=== PATIENT | female | born 1935 | race Caucasian/White ===

== ENCOUNTER 2018-01-06 14:06 | Inpatient (IN) ==
[2018-01-06 14:52] LABS: Basophils % 0.3 % (0.0-0.8); Hematocrit 41.3 VOL% (35.7-47.0); Hemoglobin 14.1 GM/DL (12.0-16.0); Immature Granulocytes % 0.8 %; Immature Granulocytes Absolute 0.09 #; Lymphocytes # 0.5 10*3/uL (1.4-4.0); Lymphocytes % 4.6 % (21.3-54.2); Mean Corpuscular HGB Conc 34.1 GM/DL (32-36); Mean Corpuscular Hemoglobin 34 PG (27-34); Mean Corpuscular Volume 99.8 FL (87-102); Mean Platelet Volume 9.9 FL (9.6-12.0); Monocytes # 0.6 10*3/uL (0.11-0.8); Monocytes % 5.4 % (1.7-12.7); Neutrophils # 10.1 10*3/uL (1.4-7.4); Neutrophils % 88.9 % (38.7-73.9); Platelet Count 221 T/CUMM (130-400); Red Blood Count 4.14 MC/CUMM (3.8-5.5); Red Cell Distribution Width 13.5 % (9.3-17.3); White Blood Count 11.4 T/CUMM (4-12)
[2018-01-06 15:23] LABS: Band Neutrophils 4 % (0-10); Lymphocytes 5 % (20-55); Platelet Estimate Normal; Segmented Neutrophils 88 % (50-85); Total Cells Counted 100
[2018-01-06 15:48] LABS: Alanine Aminotransferase 37 U/L (13-56); Albumin 3.3 G/DL (3.4-5.0); Alkaline Phosphatase 80 U/L (45-117); Aspartate Amino Transferase 31 U/L (0-37); Blood Urea Nitrogen 19 MG/DL (7-18); Calcium 9.2 MG/DL (8.5-10.1); Glucose 128 MG/DL (74-106); Osmolality,Calculated 263.8 MOS/KG (273-304); Potassium 3.6 MMOL/L (3.5-5.1); Sodium 130 MMOL/L (136-145); Total Protein 7.4 G/DL (6.4-8.3)
[2018-01-06 15:51] LABS: Apearance,Urine Cloudy (Clear); Bilirubin,Urine Negative (Negative); Blood, Urine Small mg/dL (Negative); Glucose,Urine (UA) Negative (Negative); Ketones,Urine Negative (Negative); Nitrite,Urine Positive (Negative); Protein,Urine Negative; RBC,Urine 15 /HPF (0-4); Squamous Epithelial Cell,Urine Occasional /HPF (0-10); Urine Color Amber (Yellow); Urine Specific Gravity 1.014 (1.001-1.035); WBC,Urine 118 /HPF (0-6)
[2018-01-06] MEDS ORDERED: ACETAMINOPHEN 325 MG TABLET PO PRN (19:00)
[2018-01-06] MEDS ORDERED: ONDANSETRON 4 MG/2 ML VIAL IV PRN (19:00)
[2018-01-06 19:34] LABS: Risk Ratio 4.49; Thyroid Stimulating Hormone 0.738 uIU/ml (0.358-3.74)
[2018-01-06] MEDS: SODIUM CHLOR 0.9% KCL 40 MEQ 40 MEQ/1,000 ML BAG IV SCH (21:35)
[2018-01-06] MEDS: LEVOFLOXACIN 250 MG TABLET PO SCH (21:37)
[2018-01-06] MEDS: APIXABAN 5 MG TABLET PO SCH (21:37)
[2018-01-07 06:16] LABS: Calcium 8.5 MG/DL (8.5-10.1); Osmolality,Calculated 268.2 MOS/KG (273-304); Potassium 3.6 MMOL/L (3.5-5.1)
[2018-01-07] MEDS ORDERED: PANTOPRAZOLE 40 MG TABLET PO SCH (07:30)
[2018-01-07] MEDS: CETIRIZINE 10 MG TABLET PO SCH (08:31)
[2018-01-07] MEDS: CALCIUM (CARBONATE)/VITAMIN D 600 MG-400 UNIT TABLET PO SCH (08:31)
[2018-01-07] MEDS: DILTIAZEM CD 180 MG CAPSULE PO SCH (08:31)
[2018-01-07] MEDS: APIXABAN 5 MG TABLET PO SCH ×2 (08:32→20:22)
[2018-01-07] MEDS: SODIUM CHLOR 0.9% KCL 40 MEQ 40 MEQ/1,000 ML BAG IV SCH ×4 (10:21→12:09)
[2018-01-07] MEDS: SOTALOL 80 MG TABLET PO SCH ×2 (12:07→20:22)
[2018-01-07] MEDS: PANTOPRAZOLE 40 MG TABLET PO SCH (15:47)
[2018-01-07] MEDS ORDERED: ALBUTEROL/IPRATROPIUM 3 ML NEB RESP TX PRN (16:39)
[2018-01-07] MEDS: LEVOFLOXACIN 250 MG TABLET PO SCH (20:22)
[2018-01-08 06:17] LABS: Basophils # 0.1 10*3/uL (0.0-0.2); Basophils % 0.8 % (0.0-0.8); Eosinophils # 0.1 10*3/uL (0.0-0.87); Eosinophils % 1.1 % (0.00-10.9); Hematocrit 35.2 VOL% (35.7-47.0); Immature Granulocytes Absolute 0.06 #; Lymphocytes # 1.2 10*3/uL (1.4-4.0); Lymphocytes % 18.7 % (21.3-54.2); Mean Corpuscular HGB Conc 34.1 GM/DL (32-36); Mean Corpuscular Hemoglobin 34 PG (27-34); Mean Corpuscular Volume 100.9 FL (87-102); Mean Platelet Volume 9.9 FL (9.6-12.0); Monocytes # 1.2 10*3/uL (0.11-0.8); Monocytes % 19.6 % (1.7-12.7); Neutrophils # 3.7 10*3/uL (1.4-7.4); Neutrophils % 58.8 % (38.7-73.9); Platelet Count 234 T/CUMM (130-400); Red Blood Count 3.49 MC/CUMM (3.8-5.5); Red Cell Distribution Width 14.1 % (9.3-17.3); White Blood Count 6.3 T/CUMM (4-12)
[2018-01-08 06:41] LABS: Eosinophils 1 % (0-10); Lymphocytes 21 % (20-55); Platelet Estimate Adequate; Segmented Neutrophils 66 % (50-85); Total Cells Counted 100
[2018-01-08 06:42] LABS: Hypochromasia Slight; Ovalocytes Slight
[2018-01-08 06:43] LABS: Calcium 8.4 MG/DL (8.5-10.1); Osmolality,Calculated 271.1 MOS/KG (273-304); Potassium 4.2 MMOL/L (3.5-5.1)
[2018-01-08] MEDS ORDERED: FUROSEMIDE 40 MG/4 ML VIAL IV ONE ×2 (10:37→18:55)
[2018-01-08] MEDS: DILTIAZEM CD 180 MG CAPSULE PO SCH (10:55)
[2018-01-08] MEDS: SOTALOL 80 MG TABLET PO SCH ×2 (10:56→21:42)
[2018-01-08] MEDS: PANTOPRAZOLE 40 MG TABLET PO SCH ×2 (10:56→21:42)
[2018-01-08] MEDS: CETIRIZINE 10 MG TABLET PO SCH (10:57)
[2018-01-08] MEDS: APIXABAN 5 MG TABLET PO SCH ×2 (10:57→21:42)
[2018-01-08] MEDS: CALCIUM (CARBONATE)/VITAMIN D 600 MG-400 UNIT TABLET PO SCH (10:57)
[2018-01-08] MEDS: cefTRIAXone 1,000 MG in SYRINGE 1 EACH IV SCH (21:41)
[2018-01-09 05:16] LABS: Basophils % 0.6 % (0.0-0.8); Eosinophils # 0.1 10*3/uL (0.0-0.87); Hematocrit 34.1 VOL% (35.7-47.0); Hemoglobin 11.9 GM/DL (12.0-16.0); Immature Granulocytes % 0.9 %; Immature Granulocytes Absolute 0.06 #; Lymphocytes # 1.5 10*3/uL (1.4-4.0); Lymphocytes % 22.4 % (21.3-54.2); Mean Corpuscular HGB Conc 34.9 GM/DL (32-36); Mean Corpuscular Hemoglobin 34 PG (27-34); Mean Corpuscular Volume 98.3 FL (87-102); Mean Platelet Volume 10.3 FL (9.6-12.0); Monocytes # 1.2 10*3/uL (0.11-0.8); Monocytes % 17.2 % (1.7-12.7); Neutrophils # 3.9 10*3/uL (1.4-7.4); Neutrophils % 57.9 % (38.7-73.9); Platelet Count 257 T/CUMM (130-400); Red Blood Count 3.47 MC/CUMM (3.8-5.5); Red Cell Distribution Width 13.6 % (9.3-17.3); White Blood Count 6.8 T/CUMM (4-12)
[2018-01-09 05:51] LABS: Atypical Lymphocytes Few; Band Neutrophils 1 % (0-10); Hypochromasia Slight; Lymphocytes 21 % (20-55); Nucleated Red Blood Cells 1 (0-5); Segmented Neutrophils 59 % (50-85); Total Cells Counted 100
[2018-01-09 05:52] LABS: Microcytosis Slight
[2018-01-09 05:58] LABS: Calcium 8.8 MG/DL (8.5-10.1); Osmolality,Calculated 276.7 MOS/KG (273-304); Potassium 3.7 MMOL/L (3.5-5.1)
[2018-01-09] MEDS ORDERED: POTASSIUM CHLORIDE 20 MEQ TABLET PO SCH (09:00)
[2018-01-09] MEDS: CALCIUM (CARBONATE)/VITAMIN D 600 MG-400 UNIT TABLET PO SCH (11:12)
[2018-01-09] MEDS: DILTIAZEM CD 180 MG CAPSULE PO SCH (11:12)
[2018-01-09] MEDS: SOTALOL 80 MG TABLET PO SCH ×2 (11:12→20:34)
[2018-01-09] MEDS: CETIRIZINE 10 MG TABLET PO SCH (11:13)
[2018-01-09] MEDS: PANTOPRAZOLE 40 MG TABLET PO SCH ×2 (11:13→20:34)
[2018-01-09] MEDS: APIXABAN 5 MG TABLET PO SCH ×2 (11:13→20:35)
[2018-01-09] MEDS: FUROSEMIDE 40 MG/4 ML VIAL IV SCH (11:15)
[2018-01-09] MEDS: cefTRIAXone 1,000 MG in SYRINGE 1 EACH IV SCH (20:35)
[2018-01-10 05:36] LABS: Basophils # 0.1 10*3/uL (0.0-0.2); Basophils % 1.2 % (0.0-0.8); Eosinophils # 0.1 10*3/uL (0.0-0.87); Eosinophils % 2.3 % (0.00-10.9); Hematocrit 36.2 VOL% (35.7-47.0); Immature Granulocytes % 0.9 %; Immature Granulocytes Absolute 0.05 #; Lymphocytes # 1.8 10*3/uL (1.4-4.0); Lymphocytes % 31.1 % (21.3-54.2); Mean Corpuscular HGB Conc 33.1 GM/DL (32-36); Mean Corpuscular Hemoglobin 33 PG (27-34); Mean Corpuscular Volume 100.6 FL (87-102); Mean Platelet Volume 10.6 FL (9.6-12.0); Monocytes % 17.2 % (1.7-12.7); Neutrophils # 2.7 10*3/uL (1.4-7.4); Neutrophils % 47.3 % (38.7-73.9); Platelet Count 262 T/CUMM (130-400); Red Cell Distribution Width 13.3 % (9.3-17.3); White Blood Count 5.7 T/CUMM (4-12)
[2018-01-10 06:04] LABS: Calcium 8.5 MG/DL (8.5-10.1); Osmolality,Calculated 281.4 MOS/KG (273-304); Potassium 3.1 MMOL/L (3.5-5.1)
[2018-01-10 06:15] LABS: Band Neutrophils 15 % (0-10); Eosinophils 3 % (0-10); Lymphocytes 24 % (20-55); Metamyelocytes 1 %; Segmented Neutrophils 38 % (50-85); Total Cells Counted 100
[2018-01-10] MEDS: POTASSIUM CHLORIDE 20 MEQ TABLET PO SCH ×3 (06:58→16:02)
[2018-01-10] MEDS: CALCIUM (CARBONATE)/VITAMIN D 600 MG-400 UNIT TABLET PO SCH (11:26)
[2018-01-10] MEDS: SOTALOL 80 MG TABLET PO SCH ×2 (11:27→21:24)
[2018-01-10] MEDS: CETIRIZINE 10 MG TABLET PO SCH (11:27)
[2018-01-10] MEDS: PANTOPRAZOLE 40 MG TABLET PO SCH ×2 (11:27→21:24)
[2018-01-10] MEDS: APIXABAN 5 MG TABLET PO SCH ×2 (11:27→21:24)
[2018-01-10] MEDS: FUROSEMIDE 40 MG/4 ML VIAL IV SCH (11:28)
[2018-01-10] MEDS: cefTRIAXone 1,000 MG in SYRINGE 1 EACH IV SCH (21:24)
[2018-01-11 05:04] LABS: Osmolality,Calculated 280.5 MOS/KG (273-304)
[2018-01-11] MEDS: CEFUROXIME 250 MG TABLET PO SCH ×2 (09:19→20:53)
[2018-01-11] MEDS: PANTOPRAZOLE 40 MG TABLET PO SCH ×2 (09:20→20:53)
[2018-01-11] MEDS: DILTIAZEM CD 240 MG CAPSULE PO SCH (09:20)
[2018-01-11] MEDS: CALCIUM (CARBONATE)/VITAMIN D 600 MG-400 UNIT TABLET PO SCH (09:20)
[2018-01-11] MEDS: SOTALOL 80 MG TABLET PO SCH ×2 (09:20→20:52)
[2018-01-11] MEDS: APIXABAN 5 MG TABLET PO SCH ×2 (09:20→20:53)
[2018-01-11] MEDS: FUROSEMIDE 40 MG TABLET PO SCH (09:20)
[2018-01-11] MEDS: CETIRIZINE 10 MG TABLET PO SCH (09:20)
[2018-01-11] MEDS: DILTIAZEM CD 180 MG CAPSULE PO SCH (09:25)
[2018-01-12 05:10] LABS: Osmolality,Calculated 282.4 MOS/KG (273-304); Potassium 3.6 MMOL/L (3.5-5.1)
[2018-01-12] MEDS: CALCIUM (CARBONATE)/VITAMIN D 600 MG-400 UNIT TABLET PO SCH (08:17)
[2018-01-12] MEDS: FUROSEMIDE 40 MG TABLET PO SCH (08:17)
[2018-01-12] MEDS: PANTOPRAZOLE 40 MG TABLET PO SCH ×2 (08:17→21:20)
[2018-01-12] MEDS: CEFUROXIME 250 MG TABLET PO SCH ×2 (08:17→21:20)
[2018-01-12] MEDS: DILTIAZEM CD 240 MG CAPSULE PO SCH (08:18)
[2018-01-12] MEDS: SOTALOL 80 MG TABLET PO SCH ×2 (08:18→21:20)
[2018-01-12] MEDS: APIXABAN 5 MG TABLET PO SCH ×2 (08:18→21:20)
[2018-01-12] MEDS: CETIRIZINE 10 MG TABLET PO SCH (08:19)
[2018-01-13] MEDS: CALCIUM (CARBONATE)/VITAMIN D 600 MG-400 UNIT TABLET PO SCH (09:45)
[2018-01-13] MEDS: DILTIAZEM CD 240 MG CAPSULE PO SCH (09:45)
[2018-01-13] MEDS: SOTALOL 80 MG TABLET PO SCH (09:46)
[2018-01-13] MEDS: PANTOPRAZOLE 40 MG TABLET PO SCH (09:46)
[2018-01-13] MEDS: CETIRIZINE 10 MG TABLET PO SCH (09:46)
[2018-01-13] MEDS: APIXABAN 5 MG TABLET PO SCH (09:46)
[2018-01-13] MEDS: FUROSEMIDE 40 MG TABLET PO SCH (09:46)
[2018-01-13] MEDS: CEFUROXIME 250 MG TABLET PO SCH (09:46)
[2018-01-13 11:43] VITALS: BP 100/68
== END 2018-01-13 14:59 | disposition home or self-care (01) | DRG 309 ==
LOC: N.EDINP 14:06 → N.ED 14:06 → SUATTDRO 19:00 → N.TELES 19:37 → SUATTDRO 01-07 12:40
PROVIDERS: ADMIT Internal Medicine; ATTEND Internal Medicine

== ENCOUNTER 2019-03-27 09:07 | Inpatient (IN) ==
[2019-03-27] MEDS ORDERED: NITROGLYCERIN SL 0.4 MG TABLET SL PRN (09:51)
[2019-03-27 10:26] LABS: Basophils # 0.1 10*3/uL (0.0-0.2); Basophils % 0.9 % (0.0-0.8); Eosinophils % 0.3 % (0.00-10.9); Hematocrit 40.2 VOL% (35.7-47.0); Hemoglobin 13.4 GM/DL (12.0-16.0); Immature Granulocytes % 0.3 %; Immature Granulocytes Absolute 0.03 #; Lymphocytes # 1.7 10*3/uL (1.4-4.0); Lymphocytes % 17.3 % (21.3-54.2); Mean Corpuscular HGB Conc 33.3 GM/DL (32-36); Mean Platelet Volume 11.1 FL (9.6-12.0); Monocytes % 3.8 % (1.7-12.7); Neutrophils % 77.4 % (38.7-73.9); Platelet Count 197 T/CUMM (130-400); Red Blood Count 3.94 MC/CUMM (3.8-5.5); Red Cell Distribution Width 13.2 % (9.3-17.3)
[2019-03-27 10:37] LABS: INR 1.1; PT Patient Result 11.6 SECS (9.6-12.2); Partial Thromboplastin Time 21.5 SECS (20.8-36.0)
[2019-03-27 10:40] LABS: Calcium 9.6 MG/DL (8.5-10.1); Osmolality,Calculated 287.8 MOS/KG (273-304)
[2019-03-27 11:12] LABS: Apearance,Urine Slightly Hazy (Clear); Bacteria,Urine Occasional /HPF (Few); Bilirubin,Urine Negative (Negative); Blood, Urine Negative (Negative); Glucose,Urine (UA) Negative (Negative); Hyaline Casts,Urine 13 /LPF (0-3); Ketones,Urine Negative (Negative); Mucus,Urine Occasional /LPF (Occasional); Nitrite,Urine Negative (Negative); Protein,Urine Negative; RBC,Urine <1 /HPF (0-4); Squamous Epithelial Cell,Urine Occasional /HPF (0-10); Urine Color Yellow (Yellow); Urine Specific Gravity 1.016 (1.001-1.035); WBC,Urine 1 /HPF (0-6)
[2019-03-27] MEDS ORDERED: SODIUM CHLORIDE 0.9% 500 ML IV STA (12:39)
[2019-03-27] MEDS ORDERED: ONDANSETRON 4 MG/2 ML VIAL ONE (13:05)
[2019-03-27] MEDS ORDERED: ONDANSETRON 4 MG/2 ML VIAL IV STA (13:15)
[2019-03-27] MEDS ORDERED: ONDANSETRON 4 MG/2 ML VIAL IV PRN (13:25)
[2019-03-27] MEDS ORDERED: DOCUSATE SODIUM 100 MG CAPSULE PO PRN (13:25)
[2019-03-27] MEDS ORDERED: ACETAMINOPHEN 325 MG TABLET PO PRN (13:25)
[2019-03-27] MEDS ORDERED: ENOXAPARIN 80 MG/0.8 ML SYRINGE SUBCUT SCH (13:30)
[2019-03-27 13:39] LABS: Bilirubin,Direct 0.9 MG/DL (0.0-0.20); Bilirubin,Indirect 0.9 MG/DL (0.0-1.0); Bilirubin,Total 1.8 MG/DL (0.2-1.0); Total Protein 7.6 G/DL (6.4-8.3)
[2019-03-27 13:51] LABS: Thyroid Stimulating Hormone 4.15 uIU/ml (0.358-3.74)
[2019-03-27] MEDS: METOPROLOL TARTRATE 50 MG TABLET PO SCH ×2 (16:24→20:57)
[2019-03-27] MEDS: SODIUM CHLORIDE 0.9% 1,000 ML IV SCH (16:24)
[2019-03-27] MEDS: COLCHICINE 0.6 MG CAPSULE PO SCH (16:24)
[2019-03-27] MEDS: ASPIRIN EC 81 MG TABLET PO SCH (16:24)
[2019-03-28] MEDS: SODIUM CHLORIDE 0.9% 1,000 ML IV SCH (04:33)
[2019-03-28 04:55] LABS: Basophils % 0.1 % (0.0-0.8); Hematocrit 33.7 VOL% (35.7-47.0); Hemoglobin 10.9 GM/DL (12.0-16.0); Immature Granulocytes % 0.4 %; Immature Granulocytes Absolute 0.04 #; Lymphocytes # 1.4 10*3/uL (1.4-4.0); Lymphocytes % 13.3 % (21.3-54.2); Mean Corpuscular HGB Conc 32.3 GM/DL (32-36); Mean Corpuscular Volume 103.1 FL (87-102); Mean Platelet Volume 11.4 FL (9.6-12.0); Monocytes % 10.6 % (1.7-12.7); Neutrophils % 75.6 % (38.7-73.9); Platelet Count 157 T/CUMM (130-400); Red Blood Count 3.27 MC/CUMM (3.8-5.5); Red Cell Distribution Width 13.4 % (9.3-17.3); White Blood Count 10.5 T/CUMM (4-12)
[2019-03-28 05:41] LABS: Calcium 9.2 MG/DL (8.5-10.1); Osmolality,Calculated 285.4 MOS/KG (273-304); Risk Ratio 5.15; VLDL CHOLESTEROL 24.4 MG/DL
[2019-03-28] MEDS ORDERED: PANTOPRAZOLE 40 MG TABLET PO SCH (09:00)
[2019-03-28] MEDS: ASPIRIN EC 81 MG TABLET PO SCH (09:39)
[2019-03-28] MEDS: COLCHICINE 0.6 MG CAPSULE PO SCH (09:39)
[2019-03-28] MEDS: DILTIAZEM CD 240 MG CAPSULE PO SCH (09:39)
[2019-03-28] MEDS: METOPROLOL TARTRATE 50 MG TABLET PO SCH ×2 (09:39→20:55)
[2019-03-28] MEDS: PANTOPRAZOLE 40 MG TABLET PO SCH (09:39)
[2019-03-28 12:26] LABS: Albumin 3.2 G/DL (3.4-5.0); Bilirubin,Direct 0.18 MG/DL (0.0-0.20); Bilirubin,Indirect 0.6 MG/DL (0.0-1.0); Bilirubin,Total 0.8 MG/DL (0.2-1.0); Total Protein 6.3 G/DL (6.4-8.3)
[2019-03-29 05:02] LABS: Albumin 3.5 G/DL (3.4-5.0); Bilirubin,Total 0.9 MG/DL (0.2-1.0); Calcium 9.2 MG/DL (8.5-10.1); Osmolality,Calculated 286.1 MOS/KG (273-304); Total Protein 6.7 G/DL (6.4-8.3)
[2019-03-29] MEDS ORDERED: LEVOTHYROXINE 25 MCG TABLET PO SCH (06:30)
[2019-03-29] MEDS: PANTOPRAZOLE 40 MG TABLET PO SCH (09:00)
[2019-03-29] MEDS: DILTIAZEM CD 240 MG CAPSULE PO SCH (09:00)
[2019-03-29] MEDS: METOPROLOL TARTRATE 50 MG TABLET PO SCH (09:00)
[2019-03-29] MEDS: COLCHICINE 0.6 MG CAPSULE PO SCH (09:01)
[2019-03-29] MEDS: ASPIRIN EC 81 MG TABLET PO SCH (09:01)
[2019-03-29] MEDS ORDERED: FLECAINIDE 50 MG TABLET PO SCH (10:00)
[2019-03-29 12:10] VITALS: BP 103/55
== END 2019-03-29 14:32 | disposition home or self-care (01) | DRG 243 ==
LOC: N.ED 09:07 → N.EDINP 13:25 → SUATTDRO 13:25 → N.TELES 14:33
PROVIDERS: ADMIT Internal Medicine; ATTEND Internal Medicine

== ENCOUNTER 2020-09-23 10:52 | Inpatient (IN) ==
[2020-09-23 11:33] LABS: Basophils # 0.1 10*3/uL (0.0-0.2); Basophils % 1.1 % (0.0-0.8); Eosinophils # 0.2 10*3/uL (0.0-0.87); Eosinophils % 2.1 % (0.00-10.9); Immature Granulocytes % 0.8 %; Immature Granulocytes Absolute 0.06 #; Lymphocytes # 1.7 10*3/uL (1.4-4.0); Lymphocytes % 23.8 % (21.3-54.2); Mean Corpuscular HGB Conc 32.4 GM/DL (32-36); Mean Corpuscular Volume 104.2 FL (87-102); Mean Platelet Volume 9.6 FL (9.6-12.0); Monocytes % 9.6 % (1.7-12.7); Neutrophils % 62.6 % (38.7-73.9); Platelet Count 260 T/CUMM (130-400); Red Blood Count 3.55 MC/CUMM (3.8-5.5); Red Cell Distribution Width 14.6 % (9.3-17.3); White Blood Count 7.2 T/CUMM (4-12)
[2020-09-23 11:39] LABS: Calcium 9.4 MG/DL (8.5-10.1); Osmolality,Calculated 273.2 MOS/KG (273-304); Potassium 4.7 MMOL/L (3.5-5.1)
[2020-09-23 11:40] LABS: INR 1.1; PT Patient Result 11.9 SECS (9.8-11.9)
[2020-09-23] MEDS ORDERED: ONDANSETRON 4 MG/2 ML VIAL IV PRN (13:20)
[2020-09-23] MEDS ORDERED: GLUCAGON 1 MG VIAL IM PRN ×2 (13:20)
[2020-09-23] MEDS ORDERED: MORPHINE 4 MG/1 ML VIAL IV PRN (13:20)
[2020-09-23] MEDS ORDERED: DEXTROSE 50% 25 GM/50 ML VIAL IV PRN ×2 (13:20)
[2020-09-23] MEDS ORDERED: ENOXAPARIN 30 MG/0.3 ML SYRINGE SUBCUT SCH (13:30)
[2020-09-23 13:52] LABS: Thyroid Stimulating Hormone 1.05 uIU/ml (0.358-3.74)
[2020-09-23 14:30] LABS: Bilirubin,Urine Negative (Negative); Blood, Urine Small mg/dL (Negative); Glucose,Urine (UA) Negative (Negative); Ketones,Urine Negative (Negative); Mucus,Urine Occasional /LPF (Occasional); Nitrite,Urine Negative (Negative); Protein,Urine Negative; RBC,Urine 8 /HPF (0-4); Squamous Epithelial Cell,Urine Occasional /HPF (0-10); Urine Appearance Slightly Hazy (Clear); Urine Color Yellow (Yellow); Urine Specific Gravity 1.008 (1.001-1.035); Urine Urobilinogen < 2.0 EU/DL (0.2-1.0); WBC,Urine 12 /HPF (0-6)
[2020-09-23] MEDS: DILTIAZEM CD 240 MG CAPSULE PO SCH (14:32)
[2020-09-23] MEDS: cefTRIAXone 1,000 MG in SYRINGE 1 EACH IV SCH (16:14)
[2020-09-23] MEDS ORDERED: INSULIN REGULAR 100 UNIT/ML SUBCUT SCH ×2 (16:30)
[2020-09-23] MEDS: SODIUM CHLORIDE 0.45% 1,000 ML IV SCH ×2 (17:40→21:34)
[2020-09-23] MEDS: METOPROLOL TARTRATE 50 MG TABLET PO SCH (20:53)
[2020-09-24 04:38] LABS: Basophils # 0.1 10*3/uL (0.0-0.2); Basophils % 0.4 % (0.0-0.8); Eosinophils # 0.1 10*3/uL (0.0-0.87); Eosinophils % 0.8 % (0.00-10.9); Hematocrit 35.1 VOL% (35.7-47.0); Hemoglobin 11.5 GM/DL (12.0-16.0); Immature Granulocytes % 0.6 %; Immature Granulocytes Absolute 0.07 #; Lymphocytes # 1.7 10*3/uL (1.4-4.0); Lymphocytes % 14.5 % (21.3-54.2); Mean Corpuscular HGB Conc 32.8 GM/DL (32-36); Mean Corpuscular Volume 104.2 FL (87-102); Mean Platelet Volume 10.1 FL (9.6-12.0); Monocytes % 6.7 % (1.7-12.7); Platelet Count 260 T/CUMM (130-400); Red Blood Count 3.37 MC/CUMM (3.8-5.5); Red Cell Distribution Width 14.5 % (9.3-17.3); White Blood Count 11.5 T/CUMM (4-12)
[2020-09-24 05:07] LABS: Calcium 9.2 MG/DL (8.5-10.1); Potassium 4.9 MMOL/L (3.5-5.1); Risk Ratio 2.35
[2020-09-24] MEDS: SODIUM CHLORIDE 0.45% 1,000 ML IV SCH ×2 (05:58→16:54)
[2020-09-24] MEDS ORDERED: fentaNYL 100 MCG/2 ML VIAL ONE ×2 (07:18→08:30)
[2020-09-24] MEDS ORDERED: ETOMIDATE 40 MG/20 ML VIAL IV ONE (07:18)
[2020-09-24] MEDS ORDERED: propofoL 200 MG/20 ML VIAL IV ONE (07:18)
[2020-09-24] MEDS ORDERED: LIDOCAINE 2% 5 ML VIAL ONE (07:18)
[2020-09-24] MEDS ORDERED: ROCURONIUM 50 MG/5 ML VIAL IV ONE (07:18)
[2020-09-24] MEDS ORDERED: ePHEDrine 50 MG/ML VIAL ONE (07:20)
[2020-09-24] MEDS ORDERED: CLINDAMYCIN INJ 50 ML IV ONE (07:57)
[2020-09-24] MEDS: CLINDAMYCIN INJ 900 MG in PREMIX 1 EACH IV ONE ×2 (08:06→10:11)
[2020-09-24] MEDS ORDERED: FAMOTIDINE 20 MG/2 ML VIAL IV ONE (08:08)
[2020-09-24] MEDS ORDERED: ALBUTEROL INHALER 18 GM INH ONE (08:41)
[2020-09-24] MEDS ORDERED: PHENYLEPHRINE 1 MG/10 ML SYRINGE IV ONE (08:44)
[2020-09-24] MEDS ORDERED: ACETAMINOPHEN 1,000 MG/100 ML VIAL IV ONE (08:44)
[2020-09-24] MEDS ORDERED: SEVOFLURANE 1 UNIT/15 MINUTE INH ONE ×7 (08:44→09:22)
[2020-09-24] MEDS ORDERED: SUGAMMADEX 200 MG/2 ML VIAL IV ONE (09:21)
[2020-09-24] MEDS ORDERED: LACTATED RINGERS 1,000 ML IV ONE (09:22)
[2020-09-24] MEDS ORDERED: NEOSTIGMINE 10 MG/10 ML VIAL ONE (09:34)
[2020-09-24] MEDS ORDERED: GLYCOPYRROLATE 0.4 MG/2 ML VIAL ONE (09:34)
[2020-09-24] MEDS ORDERED: ALBUTEROL/IPRATROPIUM 3 ML NEB RESP TX ONE ×2 (10:39→10:42)
[2020-09-24] MEDS: DILTIAZEM CD 240 MG CAPSULE PO SCH (10:52)
[2020-09-24] MEDS: METOPROLOL TARTRATE 50 MG TABLET PO SCH ×2 (10:52→20:20)
[2020-09-24] MEDS: PANTOPRAZOLE 40 MG TABLET PO SCH (10:52)
[2020-09-24] MEDS: cefTRIAXone 1,000 MG in SYRINGE 1 EACH IV SCH (14:25)
[2020-09-25 05:24] LABS: Basophils % 0.2 % (0.0-0.8); Eosinophils % 0.1 % (0.00-10.9); Hematocrit 32.3 VOL% (35.7-47.0); Hemoglobin 10.6 GM/DL (12.0-16.0); Immature Granulocytes % 0.5 %; Immature Granulocytes Absolute 0.08 #; Lymphocytes # 1.2 10*3/uL (1.4-4.0); Lymphocytes % 7.1 % (21.3-54.2); Mean Corpuscular HGB Conc 32.8 GM/DL (32-36); Mean Corpuscular Volume 104.2 FL (87-102); Mean Platelet Volume 10.2 FL (9.6-12.0); Monocytes % 6.8 % (1.7-12.7); Neutrophils % 85.3 % (38.7-73.9); Platelet Count 234 T/CUMM (130-400); Red Cell Distribution Width 14.5 % (9.3-17.3); White Blood Count 16.1 T/CUMM (4-12)
[2020-09-25 05:52] LABS: Calcium 8.9 MG/DL (8.5-10.1); Osmolality,Calculated 271.2 MOS/KG (273-304); Potassium 4.9 MMOL/L (3.5-5.1)
[2020-09-25] MEDS: SODIUM CHLORIDE 0.45% 1,000 ML IV SCH (06:55)
[2020-09-25] MEDS: METOPROLOL TARTRATE 50 MG TABLET PO SCH ×2 (09:16→21:10)
[2020-09-25] MEDS: DILTIAZEM CD 240 MG CAPSULE PO SCH (09:16)
[2020-09-25] MEDS: PANTOPRAZOLE 40 MG TABLET PO SCH (09:16)
[2020-09-25] MEDS: cefTRIAXone 1,000 MG in SYRINGE 1 EACH IV SCH (15:33)
[2020-09-26 05:38] LABS: Basophils % 0.2 % (0.0-0.8); Eosinophils % 0.1 % (0.00-10.9); Hemoglobin 10.8 GM/DL (12.0-16.0); Immature Granulocytes % 0.7 %; Immature Granulocytes Absolute 0.13 #; Lymphocytes # 1.6 10*3/uL (1.4-4.0); Mean Corpuscular HGB Conc 32.7 GM/DL (32-36); Mean Corpuscular Volume 103.1 FL (87-102); Mean Platelet Volume 10.2 FL (9.6-12.0); Monocytes % 8.8 % (1.7-12.7); NRBC # 0.02 10*3/uL; Neutrophils % 81.2 % (38.7-73.9); Platelet Count 229 T/CUMM (130-400); Red Cell Distribution Width 14.7 % (9.3-17.3); White Blood Count 18.3 T/CUMM (4-12)
[2020-09-26 06:03] LABS: Calcium 8.9 MG/DL (8.5-10.1); Osmolality,Calculated 274.8 MOS/KG (273-304); Potassium 4.3 MMOL/L (3.5-5.1)
[2020-09-26] MEDS: DILTIAZEM CD 240 MG CAPSULE PO SCH (08:53)
[2020-09-26] MEDS: PANTOPRAZOLE 40 MG TABLET PO SCH (08:54)
[2020-09-26] MEDS: METOPROLOL TARTRATE 50 MG TABLET PO SCH (08:54)
[2020-09-26 12:03] VITALS: BP 135/74
== END 2020-09-26 15:15 | DRG 522 ==
LOC: EDBD → EDUNIT# → N.ED 10:52 → SUATTDRO 13:17 → N.EDINP 13:17 → N.3E 14:55
PROVIDERS: ADMIT Internal Medicine; ATTEND Internal Medicine

== ENCOUNTER 2020-10-02 10:48 | Inpatient (IN) ==
[2020-10-02 11:16] LABS: Basophils % 0.2 % (0.0-0.8); Hematocrit 34.3 VOL% (35.7-47.0); Hemoglobin 11.9 GM/DL (12.0-16.0); Immature Granulocytes % 1.1 %; Immature Granulocytes Absolute 0.18 #; Lymphocytes # 1.1 10*3/uL (1.4-4.0); Lymphocytes % 7.1 % (21.3-54.2); Mean Corpuscular HGB Conc 34.7 GM/DL (32-36); Mean Corpuscular Volume 97.7 FL (87-102); Monocytes % 14.9 % (1.7-12.7); Neutrophils % 76.7 % (38.7-73.9); Platelet Count 329 T/CUMM (130-400); Red Blood Count 3.51 MC/CUMM (3.8-5.5); Red Cell Distribution Width 14.9 % (9.3-17.3); White Blood Count 15.7 T/CUMM (4-12)
[2020-10-02] MEDS ORDERED: SODIUM CHLORIDE 0.9% 1,000 ML IV STA (11:27)
[2020-10-02 11:37] LABS: Bacteria,Urine Few /HPF (Few); Bilirubin,Urine Negative (Negative); Blood, Urine Moderate mg/dL (Negative); Glucose,Urine (UA) 50 mg/dL (Negative); Ketones,Urine Negative (Negative); Mucus,Urine Occasional /LPF (Occasional); Nitrite,Urine Negative (Negative); Protein,Urine Negative; RBC,Urine 38 /HPF (0-4); Squamous Epithelial Cell,Urine Occasional /HPF (0-10); Urine Appearance CLOUDY (Clear); Urine Color Yellow (Yellow); Urine Specific Gravity 1.014 (1.001-1.035); Urine Urobilinogen < 2.0 EU/DL (0.2-1.0); WBC,Urine 60 /HPF (0-6)
[2020-10-02] MEDS ORDERED: ONDANSETRON 4 MG/2 ML VIAL IV STA (11:39)
[2020-10-02] MEDS ORDERED: ONDANSETRON 4 MG/2 ML VIAL ONE (11:40)
[2020-10-02 12:57] LABS: Alanine Aminotransferase 84 U/L (13-56); Albumin 2.8 G/DL (3.4-5.0); Alkaline Phosphatase 62 U/L (45-117); Aspartate Amino Transferase 43 U/L (0-37); Blood Urea Nitrogen 53 MG/DL (7-18); Calcium 9.1 MG/DL (8.5-10.1); Carbon Dioxide 28 MMOL/L (21-32); Glucose 130 MG/DL (74-106); Osmolality,Calculated 290.7 MOS/KG (273-304); Sodium 138 MMOL/L (136-145); Total Protein 6.1 G/DL (5.0-7.5)
[2020-10-02 12:58] LABS: Estimated Glom Filtration Rate 0 ML/MIN
[2020-10-02] MEDS ORDERED: DEXTROSE 50% 25 GM/50 ML VIAL IV PRN (16:21)
[2020-10-02] MEDS ORDERED: ONDANSETRON 4 MG/2 ML VIAL IV PRN (16:21)
[2020-10-02] MEDS ORDERED: GLUCAGON 1 MG VIAL IM PRN (16:21)
[2020-10-02] MEDS ORDERED: ACETAMINOPHEN 500 MG TABLET PO PRN (16:25)
[2020-10-02] MEDS ORDERED: BISACODYL 10 MG SUPP RECTAL PRN (16:25)
[2020-10-02] MEDS ORDERED: ALUMINUM/MAGNES/SIMETH MAX STR 30 ML UDCUP PO PRN (16:25)
[2020-10-02] MEDS ORDERED: LACTULOSE 20 GM/30 ML UDCUP PO PRN (16:25)
[2020-10-02] MEDS ORDERED: ENOXAPARIN 30 MG/0.3 ML SYRINGE SUBCUT SCH (16:30)
[2020-10-02] MEDS ORDERED: CEFEPIME 1,000 MG VIAL ONE (17:26)
[2020-10-02] MEDS ORDERED: SODIUM CHLORIDE 0.9% 0 ML IV ONE (17:27)
[2020-10-02] MEDS ORDERED: SODIUM CHLORIDE 0.9% 100 ML IV ONE ×2 (17:28→17:29)
[2020-10-02] MEDS: SODIUM CHLORIDE 0.9% 1,000 ML IV SCH (17:37)
[2020-10-02] MEDS: CEFEPIME 1,000 MG in SODIUM CHLORIDE 0.9% 100 ML IV SCH (17:45)
[2020-10-02] MEDS: FLECAINIDE 50 MG TABLET PO SCH (20:52)
[2020-10-02] MEDS: MEMANTINE 5 MG TABLET PER TUBE SCH (20:52)
[2020-10-02] MEDS: APIXABAN 5 MG TABLET PO SCH (20:53)
[2020-10-02] MEDS: DOCUSATE SODIUM 100 MG CAPSULE PO SCH (20:53)
[2020-10-02] MEDS: METOPROLOL TARTRATE 50 MG TABLET PO SCH (20:53)
[2020-10-02] MEDS: ALBUTEROL 2.5 MG/3 ML NEB RESP TX SCH (20:55)
[2020-10-03] MEDS: ALBUTEROL 2.5 MG/3 ML NEB RESP TX SCH ×4 (01:34→19:09)
[2020-10-03] MEDS: SODIUM CHLORIDE 0.9% 1,000 ML IV SCH ×2 (03:36→15:41)
[2020-10-03 05:22] LABS: Calcium 8.7 MG/DL (8.5-10.1); Osmolality,Calculated 293.3 MOS/KG (273-304); Thyroid Stimulating Hormone 0.52 uIU/ml (0.358-3.74)
[2020-10-03 05:24] LABS: Basophils % 0.2 % (0.0-0.8); Immature Granulocytes Absolute 0.11 #; Lymphocytes # 1.1 10*3/uL (1.4-4.0); Lymphocytes % 10.7 % (21.3-54.2); Mean Corpuscular HGB Conc 32.7 GM/DL (32-36); Mean Corpuscular Volume 103.1 FL (87-102); Mean Platelet Volume 9.7 FL (9.6-12.0); Monocytes % 13.6 % (1.7-12.7); Neutrophils % 74.5 % (38.7-73.9); Red Blood Count 2.91 MC/CUMM (3.8-5.5); Red Cell Distribution Width 15.3 % (9.3-17.3); White Blood Count 10.6 T/CUMM (4-12)
[2020-10-03 05:25] LABS: Hemoglobin 9.8 GM/DL (12.0-16.0); Platelet Count 258 T/CUMM (130-400)
[2020-10-03] MEDS: CEFEPIME 1,000 MG in SODIUM CHLORIDE 0.9% 100 ML IV SCH ×2 (06:07→20:55)
[2020-10-03] MEDS ORDERED: POTASSIUM CHLORIDE 20 MEQ TABLET PO ONE (07:35)
[2020-10-03] MEDS ORDERED: POTASSIUM CHLORIDE 20 MEQ TABLET PO PRN (07:56)
[2020-10-03] MEDS: ROSUVASTATIN 20 MG TABLET PO SCH (09:50)
[2020-10-03] MEDS: APIXABAN 5 MG TABLET PO SCH ×2 (09:55→20:59)
[2020-10-03] MEDS: DOCUSATE SODIUM 100 MG CAPSULE PO SCH ×2 (09:55→21:00)
[2020-10-03] MEDS: METOPROLOL TARTRATE 50 MG TABLET PO SCH ×2 (09:55→21:00)
[2020-10-03] MEDS: MEMANTINE 5 MG TABLET PER TUBE SCH ×2 (09:55→21:00)
[2020-10-03] MEDS: PANTOPRAZOLE 40 MG TABLET PO SCH (09:55)
[2020-10-03] MEDS: CALCIUM (CARBONATE)/VITAMIN D 600 MG-400 UNIT TABLET PO SCH (09:55)
[2020-10-03] MEDS: DILTIAZEM CD 240 MG CAPSULE PO SCH (09:56)
[2020-10-03] MEDS: FLECAINIDE 50 MG TABLET PO SCH ×2 (09:56→21:00)
[2020-10-03] MEDS: POTASSIUM CHLORIDE IV SCH (20:50)
[2020-10-03] MEDS: SODIUM CHLORIDE 0.45% IV SCH (20:50)
[2020-10-04] MEDS: ALBUTEROL 2.5 MG/3 ML NEB RESP TX SCH ×5 (00:32→19:21)
[2020-10-04 05:57] LABS: Calcium 8.4 MG/DL (8.5-10.1); Osmolality,Calculated 292.8 MOS/KG (273-304)
[2020-10-04] MEDS: POTASSIUM CHLORIDE IV SCH (09:00)
[2020-10-04] MEDS: SODIUM CHLORIDE 0.45% IV SCH (09:00)
[2020-10-04] MEDS: METOPROLOL TARTRATE 50 MG TABLET PO SCH ×2 (09:03→20:50)
[2020-10-04] MEDS: DILTIAZEM CD 240 MG CAPSULE PO SCH (09:04)
[2020-10-04] MEDS: FLECAINIDE 50 MG TABLET PO SCH ×2 (09:04→20:50)
[2020-10-04] MEDS: DOCUSATE SODIUM 100 MG CAPSULE PO SCH ×2 (09:04→20:50)
[2020-10-04] MEDS: CALCIUM (CARBONATE)/VITAMIN D 600 MG-400 UNIT TABLET PO SCH (09:04)
[2020-10-04] MEDS: ROSUVASTATIN 20 MG TABLET PO SCH (09:04)
[2020-10-04] MEDS: CEFEPIME 1,000 MG in SODIUM CHLORIDE 0.9% 100 ML IV SCH ×2 (09:05→20:49)
[2020-10-04] MEDS: PANTOPRAZOLE 40 MG TABLET PO SCH (09:05)
[2020-10-04] MEDS: MEMANTINE 5 MG TABLET PER TUBE SCH ×2 (09:05→20:50)
[2020-10-04] MEDS: APIXABAN 5 MG TABLET PO SCH ×2 (09:05→20:50)
[2020-10-04] MEDS ORDERED: VANCOMYCIN INJ 1,250 MG in SODIUM CHLORIDE 0.9% 250 ML IV ONE (13:00)
[2020-10-05] MEDS: ALBUTEROL 2.5 MG/3 ML NEB RESP TX SCH ×4 (01:20→19:46)
[2020-10-05 05:48] LABS: Basophils % 0.1 % (0.0-0.8); Eosinophils # 0.2 10*3/uL (0.0-0.87); Eosinophils % 1.7 % (0.00-10.9); Hematocrit 28.5 VOL% (35.7-47.0); Hemoglobin 9.1 GM/DL (12.0-16.0); Lymphocytes # 1.5 10*3/uL (1.4-4.0); Lymphocytes % 14.7 % (21.3-54.2); Mean Corpuscular HGB Conc 31.9 GM/DL (32-36); Mean Corpuscular Volume 105.2 FL (87-102); Mean Platelet Volume 9.7 FL (9.6-12.0); Neutrophils % 70.5 % (38.7-73.9); Platelet Count 229 T/CUMM (130-400); Red Blood Count 2.71 MC/CUMM (3.8-5.5); Red Cell Distribution Width 15.8 % (9.3-17.3)
[2020-10-05 06:09] LABS: Calcium 8.6 MG/DL (8.5-10.1); Osmolality,Calculated 283.4 MOS/KG (273-304); Potassium 4.3 MMOL/L (3.5-5.1)
[2020-10-05] MEDS: DILTIAZEM CD 240 MG CAPSULE PO SCH (09:13)
[2020-10-05] MEDS: CALCIUM (CARBONATE)/VITAMIN D 600 MG-400 UNIT TABLET PO SCH (09:13)
[2020-10-05] MEDS: DOCUSATE SODIUM 100 MG CAPSULE PO SCH ×2 (09:13→21:36)
[2020-10-05] MEDS: ROSUVASTATIN 20 MG TABLET PO SCH (09:14)
[2020-10-05] MEDS: APIXABAN 5 MG TABLET PO SCH ×2 (09:14→21:36)
[2020-10-05] MEDS: METOPROLOL TARTRATE 50 MG TABLET PO SCH ×2 (09:14→21:36)
[2020-10-05] MEDS: PANTOPRAZOLE 40 MG TABLET PO SCH (09:14)
[2020-10-05] MEDS: MEMANTINE 5 MG TABLET PER TUBE SCH ×2 (09:15→21:44)
[2020-10-05] MEDS: FLECAINIDE 50 MG TABLET PO SCH ×2 (09:15→21:37)
[2020-10-05] MEDS: CEFEPIME 1,000 MG in SODIUM CHLORIDE 0.9% 100 ML IV SCH ×2 (09:17→21:37)
[2020-10-05] MEDS ORDERED: VANCOMYCIN INJ 1,250 MG in SODIUM CHLORIDE 0.9% 250 ML IV SCH (15:00)
[2020-10-06] MEDS: ALBUTEROL 2.5 MG/3 ML NEB RESP TX SCH ×4 (00:14→19:23)
[2020-10-06] MEDS: POTASSIUM CHLORIDE IV SCH ×2 (00:56)
[2020-10-06] MEDS: SODIUM CHLORIDE 0.45% IV SCH ×2 (00:56)
[2020-10-06 06:02] LABS: Basophils % 0.2 % (0.0-0.8); Eosinophils # 0.1 10*3/uL (0.0-0.87); Eosinophils % 0.9 % (0.00-10.9); Hematocrit 26.8 VOL% (35.7-47.0); Hemoglobin 8.7 GM/DL (12.0-16.0); Immature Granulocytes Absolute 0.12 #; Lymphocytes # 1.2 10*3/uL (1.4-4.0); Lymphocytes % 9.8 % (21.3-54.2); Mean Corpuscular HGB Conc 32.5 GM/DL (32-36); Mean Corpuscular Volume 104.3 FL (87-102); Mean Platelet Volume 9.6 FL (9.6-12.0); Monocytes % 10.7 % (1.7-12.7); Neutrophils % 77.4 % (38.7-73.9); Platelet Count 216 T/CUMM (130-400); Red Blood Count 2.57 MC/CUMM (3.8-5.5); Red Cell Distribution Width 15.8 % (9.3-17.3); White Blood Count 11.7 T/CUMM (4-12)
[2020-10-06 06:25] LABS: Calcium 8.6 MG/DL (8.5-10.1); Osmolality,Calculated 278.8 MOS/KG (273-304); Potassium 5.1 MMOL/L (3.5-5.1)
[2020-10-06] MEDS: DILTIAZEM CD 240 MG CAPSULE PO SCH (09:49)
[2020-10-06] MEDS: FUROSEMIDE 20 MG TABLET PO SCH (09:49)
[2020-10-06] MEDS: FLECAINIDE 50 MG TABLET PO SCH ×2 (09:49→20:32)
[2020-10-06] MEDS: PANTOPRAZOLE 40 MG TABLET PO SCH (09:49)
[2020-10-06] MEDS: CALCIUM (CARBONATE)/VITAMIN D 600 MG-400 UNIT TABLET PO SCH (09:49)
[2020-10-06] MEDS: MEMANTINE 5 MG TABLET PER TUBE SCH ×2 (09:49→20:32)
[2020-10-06] MEDS: METOPROLOL TARTRATE 50 MG TABLET PO SCH ×2 (09:49→20:32)
[2020-10-06] MEDS: APIXABAN 5 MG TABLET PO SCH ×2 (09:49→20:32)
[2020-10-06] MEDS: ROSUVASTATIN 20 MG TABLET PO SCH (09:49)
[2020-10-06] MEDS: DOCUSATE SODIUM 100 MG CAPSULE PO SCH ×2 (09:49→20:32)
[2020-10-06] MEDS: CEFEPIME 1,000 MG in SODIUM CHLORIDE 0.9% 100 ML IV SCH ×2 (09:50→20:42)
[2020-10-07] MEDS: ALBUTEROL 2.5 MG/3 ML NEB RESP TX SCH ×3 (00:12→13:31)
[2020-10-07 06:03] LABS: Basophils % 0.1 % (0.0-0.8); Eosinophils % 0.1 % (0.00-10.9); Hematocrit 27.4 VOL% (35.7-47.0); Immature Granulocytes % 1.1 %; Immature Granulocytes Absolute 0.15 #; Lymphocytes # 0.7 10*3/uL (1.4-4.0); Lymphocytes % 5.4 % (21.3-54.2); Mean Corpuscular HGB Conc 32.8 GM/DL (32-36); Mean Corpuscular Volume 104.2 FL (87-102); Mean Platelet Volume 10.2 FL (9.6-12.0); Monocytes % 7.2 % (1.7-12.7); Neutrophils % 86.1 % (38.7-73.9); Platelet Count 224 T/CUMM (130-400); Red Blood Count 2.63 MC/CUMM (3.8-5.5); White Blood Count 13.5 T/CUMM (4-12)
[2020-10-07 06:21] LABS: Calcium 8.5 MG/DL (8.5-10.1); Osmolality,Calculated 284.7 MOS/KG (273-304); Potassium 4.3 MMOL/L (3.5-5.1)
[2020-10-07] MEDS: FLECAINIDE 50 MG TABLET PO SCH (09:28)
[2020-10-07] MEDS: MEMANTINE 5 MG TABLET PER TUBE SCH (09:28)
[2020-10-07] MEDS: CALCIUM (CARBONATE)/VITAMIN D 600 MG-400 UNIT TABLET PO SCH (09:28)
[2020-10-07] MEDS: PANTOPRAZOLE 40 MG TABLET PO SCH (09:28)
[2020-10-07] MEDS: DOCUSATE SODIUM 100 MG CAPSULE PO SCH (09:28)
[2020-10-07] MEDS: DILTIAZEM CD 240 MG CAPSULE PO SCH (09:28)
[2020-10-07] MEDS: METOPROLOL TARTRATE 50 MG TABLET PO SCH (09:28)
[2020-10-07] MEDS: APIXABAN 5 MG TABLET PO SCH (09:29)
[2020-10-07] MEDS: FUROSEMIDE 20 MG TABLET PO SCH (09:29)
[2020-10-07] MEDS: ROSUVASTATIN 20 MG TABLET PO SCH (09:29)
[2020-10-07] MEDS: CEFEPIME 1,000 MG in SODIUM CHLORIDE 0.9% 100 ML IV SCH (09:29)
[2020-10-07 12:22] VITALS: BP 110/55
[2020-10-07] MEDS ORDERED: MAGNESIUM HYDROXIDE SUSP 30 ML UDCUP PO ONE (14:42)
== END 2020-10-07 16:23 | DRG 388 ==
LOC: EDUNIT# → EDBD → N.ED 10:48 → N.EDINP 16:50 → N.5E 17:37
PROVIDERS: ADMIT Internal Medicine; ATTEND Internal Medicine